=== PATIENT | female | born 1970 | race Hispanic/Latino ===

== ENCOUNTER 2016-11-28 21:02 | Inpatient (IN) | payer BC, OTHER ==
--- NOTE | 2016-11-28 21:08 | C.PDOC ---
History Of Present Illness Patient is a 46 y/o female transferred from [facility] for psych admission. Pt was medically clearedat [facility], and was accepted by Dr. Adkins. No physical complaints at this time. Time Seen by Provider: 11/28/16 21:06 History Per: Patient History/Exam Limitations: no limitations Onset/Duration Of Symptoms: Gradual Current Symptoms Are (Timing): Still Present Suicide/Self Injury Attempted (Context): None Modifying Factor(s): None Severity: None Pain Scale Rating Of: 0 Associated Symptoms: Depression Involuntary Hold By: None Recent travel outside of the [place]: No Additional History Per: Patient Past Medical History Reviewed: Historical Data, Nursing Documentation, Vital Signs Vital Signs: Last Vital Signs Temp 97.9 F 11/28/16 21:08 Pulse 74 11/28/16 21:08 Resp 20 11/28/16 21:08 BP 97/67 L 11/28/16 21:08 Pulse Ox 98 11/28/16 21:08 - Medical History PMH: Anxiety, Depression Denies: Diabetes, Hepatitis, HIV, HTN, Chronic Kidney Disease, Seizures, Sexually Transmitted Disease Family History: States: No Known Family Hx - Social History Hx Tobacco Use: No Hx Alcohol Use: Yes (SOCIAL) Hx Substance Use: No Review Of Systems Constitutional: Negative for: Fever, Chills Cardiovascular: Negative for: Chest Pain, Palpitations Respiratory: Negative for: Shortness of Breath Gastrointestinal: Negative for: Nausea, Vomiting, Abdominal Pain Neurological: Negative for: Headache, Dizziness Psych: Positive for: Depression Physical Exam - Physical Exam Appears: Non-toxic, No Acute Distress, Other (depressed affect) Skin: Warm, Dry Oral Mucosa: Moist Chest: Symmetrical Cardiovascular: Rhythm Regular, No Murmur Respiratory: No Rales, No Rhonchi, No Wheezing Gastrointestinal/Abdominal: Soft, No Tenderness Extremity: Normal ROM Extremity: Bilateral: Normal Color And Temperature Neurological/Psych: Oriented x3, Normal Speech, Normal Cognition Gait: Steady ED Course And Treatment O2 Sat by Pulse Oximetry: 98 Pulse Ox Interpretation: Normal Disposition Discussed With : Justin Adkins Comment: accepted the pt on his service and took over the care at 9:18PM Counseled Patient/Family Regarding: Studies Performed, Diagnosis - Disposition Disposition: HOSPITALIZED Disposition Time: 21:19 Condition: FAIR - POA Present On Arrival: None - Clinical Impression Clinical Impression: Major depression - Scribe Statement The provider has reviewed the documentation as recorded by the Yamilex Banks Provider Attestation: All medical record entries made by the Yelitzaibe were at my direction and personally dictated by me. I have reviewed the chart and agree that the record accurately reflects my personal performance of the history, physical exam, medical decision making, and the department course for this patient. I have also personally directed, reviewed, and agree with the discharge instructions and disposition. Decision To Admit - Pt Status Changed To: Hospital Disposition Of: Inpatient - Admit Certification Admit to Inpatient:: After my assessment, the patient will require hospitalization for at least two midnights. This is because of the severity of symptoms shown, intensity of services needed, and/or the medical risk in this patient being treated as an outpatient. - InPatient: Physician Admission Certification: I certify that this patient requires 2 or more midnights of care for the following reason:: After my assessment, the patient will require hospitalization for at least two midnights. This is because of the severity of symptoms shown, intensity of services needed, and/or the medical risk in this patient being treated as an outpatient. - . Bed Request Type: Psychiatry Admitting Physician: Justin Adkins Patient Diagnosis: Major depression
[2016-11-28 21:09] VITALS: BMI 21.6
[2016-11-28 21:13] VITALS: O2SAT 98
--- NOTE | 2016-11-29 18:19 | PCM.PSYCH ---
Initial Psychiatric Evaluation - Initial Psychiatric Evaluation Type of Admission: Voluntary Legal Status: Capacity Chief Complaint (in patient's own words): I started feeling more depressed and had suicidal ideations. 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 Currently she was taking Zoloft 25 mg and Abilify 5 mg prescribed by her psychiatrist. Patient reported that she was taking Zoloft 200 mg which was slowly reduced to 25 mg by her psychiatrist. Started feeling very depressed, no change in sleep but appetite was decreased and also she lost 5 pounds in 1 month. Reported having suicidal ideations at times for last few days without any plan. Denied any suicidal attempts or any homicidal ideations. Reported she cries the time and is isolative. Denied any psychotic manic or anxiety symptoms. This is her first admission. Patient also reported that for last 1 week she started pulling her hair years and also biting on her knuckles of both hands. Reported after doing that she feels some relief of her attention. 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 She is and has 2 children 9 and 5 years old. Her height is 5 feet 9 inches and weight is 164 pounds. Denied use of any drugs including alcohol cocaine cannabis and heroin. Denied smoking cigarettes. Current Medications: Active Medications Generic Name Dose Route Start Last Admin Trade Name Freq PRN Reason Stop Dose Admin Aripiprazole 5 mg 11/28/16 22:00 11/28/16 22:22 Abilify PO Not Given HS ABDOULAYE Benztropine Mesylate 1 mg 11/28/16 21:31 Cogentin PO Q6 PRN EPS Haloperidol 5 mg 11/28/16 21:31 Haldol PO Q6 PRN Agitation Hydroxyzine HCl 25 mg 11/28/16 21:31 Atarax PO Q6 PRN Anxiety Ibuprofen 600 mg 11/28/16 21:31 Motrin Tab PO Q6 PRN Pain, moderate (4-7) Lorazepam 1 mg 11/28/16 21:31 Ativan PO Q6 PRN severe anxiety Sertraline HCl 50 mg 11/29/16 10:00 11/29/16 13:14 Zoloft PO 50 mg DAILY ABDOULAYE Administration Trazodone HCl 50 mg 11/28/16 21:31 11/28/16 22:50 Desyrel PO 50 mg HS PRN Administration Insomnia Past Psychiatric History - Past Psychiatric History Prior Professional Help: Getting treatment from outpatient psychiatrist History of Abuse: None reported History of ETOH/Drug Use: See HPI History of Family Illness: None reported Pertinent Medical Hx (Current Medical&Sleep Prob, Allergies): Allergies Allergy/AdvReac Type Severity Reaction Status Date / Time latex Allergy ITCHING Verified 11/28/16 21:13 ARIPiprazole [Abilify] 5 mg PO HS 11/28/16 Sertraline [Zoloft] 25 mg PO DAILY 11/28/16 Review of Systems - Psychiatric Psychiatric: Depression Mental Status Examination - Personal Presentation Personal Presentation: Looks stated age - Affect Affect: Depressed - Motor Activity Motor Activity: Calm - Reliability in Providing Information Reliability in Providing Information: Good - Speech Speech: Organized - Mood Mood: Depressed - Formal Thought Process Formal Thought Process: No Impairment - Hallucinations/Delusions Hallucinations: Other (None reported) Delusions: Other - Obsessions/Compulsions Obsessions: None Compulsions: None - Cognitive Functions Orientation: Person, Place, Situation, Time Sensorium: Alert Attention/Concentration: Attentive Abstract Thinking: [place] Estimate of Intelligence: Average Judgement: Intact, as evidence by: Insight regarding need for hospitalization Memory: Recent intact, as evidence by: 3/3 object recall, Remote intact, as evidenced by: Ability to recall historical events - Risk Risk: Diminished functioning - Strength & Assets Inventory Strength & Assets Inventory: Family support, Employment status, Skills, Cooperative - Limitations Limitations: Other DSM 5 DX - DSM 5 DSM 5 Diagnosis: Major depressive disorder recurrent severe - Recommended/Plan of Treatment Treatment Recommendations and Plan of Treatment: Patient education Supportive therapy Will continue Abilify 5 mg. Will increase the dose of Zoloft from 25 mg to 50 mg with plan to go back to 200 mg or more. When necessary medications Projected ELOS: 8-10 days - Smoking Cessation Smoking Cessation Initiated: No Reason for not providing: Patient doesn't smoke cigarettes
--- NOTE | 2016-11-30 09:52 | PCM.PYCHPN ---
Psychiatric Progress Note - Psychiatric Progress Note Patient seen today, length of contact: 17 min Patient Chief Complaint: I was feeling depressed and had thoughts of wanting to hurt myself. 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 She lives with her and 2 kids, ages 9 and 5, in [place]. Pt states that she was feeling depressed and anxious for 2 weeks. Patient was feeling suicidal, but did not have a plan. Patient felt like hurting herself, and was biting her knuckles and pulling her hair. Patient states that she has a history of depression but had not felt this way for some time. Patient has been seeing a psychiatrist since January. Pt states that she feels like she "fell off an emotional susan all of a sudden 2 weeks ago" when she was tasked with doing something new at work and "got scared." She states that she is not making enough money and does not feel secure. She is sleeping 7-8 hours a day, but wakes up with a racing mind and feels anxious. She states she has little interest in things she used to enjoy doing, and cannot even motivate herself to do the basic things. She feels guilty about having kids because she "knows depression is genetic," and feels guilty that she is not home right now and will miss her daughter's play. She says she does not have energy and concentration. She denies hearing voices, seeing shadows. Pt sees Dr. Michael Sue in [place] and states at her last visit, she had a cheek swab done for genetic analysis for medications. PMHx: denies Allergies: latex - dermatitis Medication Change: Yes (increase zoloft) Medical Record Reviewed: Yes Mental Status Examination - Cognitive Function Orientation: Person, Place, Situation, Time Memory: Intact Attention: WNL Concentration: Poor Association: WNL Fund of Knowledge: Poor - Mood Mood: Depressed, Anxious - Affect Affect: Depressed - Speech Speech: Soft - Formal Thought Process Formal Thought Process: No Impairment - Suicidal Ideation Suicidal Ideation: No - Homicidal Ideation Homicidal Ideation: No Goal/Treatment Plan - Goal/Treatment Plan Need for Continued Stay: Discharge may exacerbated symptoms, Severe functional impairment Progress Toward Problem(s) and Goals/Treatment Plan: Major depressive disorder recurrent severe CBT Psychoeducation Supportive therapy, individual therapy, milieu therapy and group therapy Zoloft 100 mg PO daily Trazodone 50 mg PO Q HS Neurontin 100 mg pO TID Abilify to 5 mg PO HS - Smoking Cessation Smoking Cessation Initiated: No
--- NOTE | 2016-12-01 12:50 | PCM.PYCHPN ---
Psychiatric Progress Note - Psychiatric Progress Note Patient seen today, length of contact: 17 min Patient Chief Complaint: I feel okay. Problems Identified/Issues Discussed: Patient seen and examined, chart reviewed with nurse. Patient states she is feeling slightly less anxious today, but her depression is the same. Patient states she was able to sleep through the night until another patient made a disturbance in the hallway. Patient is in contact with her personal psychiatrist about getitng her genetic testing results, which will be faxed to . Patient denies any suicidal ideation and hallucinations. Patient denies any complaints, but is unsure why her zoloft dose was increased since her private psychiatrist was decreasing the dose. Patient also unclear why she was started on neurontin. Patient states she feels they are helping slightly for her anxiety. Patient withdrawn and keeps to herself, does not interact much with other patients. Medication Change: Yes (d/c abilify) Medical Record Reviewed: Yes Mental Status Examination - Cognitive Function Orientation: Person, Place, Situation, Time Memory: Intact Attention: WNL Concentration: Poor Association: WNL Fund of Knowledge: Poor - Mood Mood: Depressed, Anxious - Affect Affect: Depressed - Speech Speech: Soft - Formal Thought Process Formal Thought Process: No Impairment - Suicidal Ideation Suicidal Ideation: No - Homicidal Ideation Homicidal Ideation: No Goal/Treatment Plan - Goal/Treatment Plan Need for Continued Stay: Discharge may exacerbated symptoms, Severe functional impairment Progress Toward Problem(s) and Goals/Treatment Plan: Major depressive disorder recurrent severe CBT Psychoeducation Supportive therapy, individual therapy, milieu therapy and group therapy Zoloft 100 mg PO daily Trazodone 50 mg PO Q HS Neurontin 100 mg pO TID D/C Abilify to 5 mg PO HS Hydroxyzine 50 mg PO TID
[2016-12-02 07:50] VITALS: RESP 20; TEMP 97.8
--- NOTE | 2016-12-02 14:10 | PCM.PYCHPN ---
Psychiatric Progress Note - Psychiatric Progress Note Patient seen today, length of contact: 17 min Patient Chief Complaint: I feel okay. Problems Identified/Issues Discussed: Patient seen and examined, chart reviewed with nurse. Patient states she is feeling much better and she reports she was able to sleep through the night. Patient denies any suicidal ideation and hallucinations. Patient reports a bit improvement in her irritability and agitation. However she is taking medications and denies any side effects. Supportive therapy was given Medication Change: Yes (start remeron) Medical Record Reviewed: Yes Mental Status Examination - Cognitive Function Orientation: Person, Place, Situation, Time Memory: Intact Attention: WNL Concentration: Poor Association: WNL Fund of Knowledge: Poor - Mood Mood: Anxious - Affect Affect: Constricted - Speech Speech: Soft - Formal Thought Process Formal Thought Process: No Impairment - Suicidal Ideation Suicidal Ideation: No - Homicidal Ideation Homicidal Ideation: No Goal/Treatment Plan - Goal/Treatment Plan Need for Continued Stay: Discharge may exacerbated symptoms, Severe functional impairment Progress Toward Problem(s) and Goals/Treatment Plan: Major depressive disorder recurrent severe CBT Psychoeducation Supportive therapy, individual therapy, milieu therapy and group therapy Zoloft 100 mg PO daily Trazodone 50 mg PO Q HS Neurontin 100 mg pO TID Hydroxyzine 50 mg PO TID Remeron 15 mg by mouth daily at bedtime
[2016-12-02 15:51] VITALS: BP 107/64; PULSE 69
[2016-12-02] MEDS ORDERED: Vitamins A & D Oint UD Foilpak TOP PRN (17:57)
--- NOTE | 2016-12-03 11:38 | PCM.PYCHDC ---
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 Currently she was taking Zoloft 25 mg and Abilify 5 mg prescribed by her psychiatrist. Patient reported that she was taking Zoloft 200 mg which was slowly reduced to 25 mg by her psychiatrist. Started feeling very depressed, no change in sleep but appetite was decreased and also she lost 5 pounds in 1 month. Reported having suicidal ideations at times for last few days without any plan. Denied any suicidal attempts or any homicidal ideations. Reported she cries the time and is isolative. Denied any psychotic manic or anxiety symptoms. This is her first admission. Patient also reported that for last 1 week she started pulling her hair years and also biting on her knuckles of both hands. Reported after doing that she feels some relief of her attention. 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 She is and has 2 children 9 and 5 years old. Her height is 5 feet 9 inches and weight is 164 pounds. Denied use of any drugs including alcohol cocaine cannabis and heroin. Denied smoking cigarettes. Consultations:: List each consultation separately and include: 1. Reason for request. 2. Findings. 3. Follow-up Summary of Hospital Course include:: 1. Description of specific treatment plan utilized for patients during their course of treatmen. 2. Summarize the time- course for resolution of acute symptoms and/or regressed behaviors. 3. Describe issues identified and worked on during hospitalization. 4. Describe medication utilized. 5. Describe medical problems identified and treated. 6. Reassessment of suicide risk Summary of Hospital Course: During the course of her stay, patient (pt) started progressively improving and she no longer remained anxious, depressed and suicidal. Her mood and anxiety started getting better and she started attending groups and meetings and started socializing. The doses of her medications were maximized and patient denied any feelings of hopelessness, helplessness, and worthlessness, denied any problem with the sleep or appetite, denied suicidal ideation or homicidal ideation. Pt denied any auditory or visual hallucinations. Patient reported improvement in her mood and tolerated these medications very well and denied any side effects. - Final Diagnosis (DSM 5) Condition upon Discharge: FAIR DSM 5: Major depressive disorder recurrent severe Disposition: HOME/ ROUTINE Follow-up Treatment Plan: Education: Pt was educated and counseled about the risks and benefits of taking and not taking medications. Pt was educated and counseled about the risks of drinking and abusing drugs. Pt was educated and counseled to go to the ER or call 911 if pt develop suicidal ideation or homicidal ideation, worsening of symptoms or severe side effects of the meds. Prescriptions/Medication Reconciliation: hydrOXYzine HCl [Atarax] 25 mg PO BID PRN #60 tab PRN Reason: Anxiety Mirtazapine [Remeron] 15 mg PO HS #30 tab Sertraline [Zoloft] 100 mg PO DAILY #30 tab - Smoking Cessation Smoking Cessation Medication prescribed: No - Antipsychotic Medications Pt discharged on 2 or more routine antipsychotic medications: No
== END 2016-12-03 12:05 | disposition home or self-care (01) | DRG 885 ==
LOC: C.ER 21:02 → C.5E 21:09
DX: F33.2 Major depressive disorder, recurrent severe without psychotic features (principal); R45.851 Suicidal ideations; F41.9 Anxiety disorder, unspecified; Z79.899 Other long term (current) drug therapy